=== PATIENT | female | born 2000 | race African-American/Black ===

== ENCOUNTER 2022-01-22 13:23 | Emergency (ER) | payer OTHER ==
[~2022-01-22] VITALS: Ht 165.1 cm; Wt 77.2 kg
[2022-01-22 13:33] VITALS: BP 132/71
[2022-01-22 14:00] VITALS: BP 104/79
[2022-01-22 14:30] VITALS: BP 97/72
[2022-01-22] MEDS ORDERED: XYZAL ALLERGY 245 MG PO (14:46)
[2022-01-22] MEDS ORDERED: FLONASE AL50 MCG/AC1 NS (14:46)
[2022-01-22 15:00] VITALS: BP 114/74
[2022-01-22 15:16] VITALS: BP 114/74
== END 2022-01-22 15:24 | disposition home or self-care (01) ==
LOC: ED 13:23
DX: J06.9 Acute upper respiratory infection, unspecified (principal); Z20.822 Contact with and (suspected) exposure to COVID-19

== ENCOUNTER 2022-09-14 09:27 | Emergency (ER) | payer OTHER ==
[~2022-09-14] VITALS: Ht 165.1 cm; Wt 85.4 kg
[~2022-09-14 09:27] MED LIST: FLONASE AL50 MCG/AC1 NS; XYZAL ALLERGY 245 MG PO
[2022-09-14 09:50] VITALS: BP 107/61
[2022-09-14 10:00] VITALS: BP 106/66
[2022-09-14 10:15] VITALS: BP 114/86
[2022-09-14 10:31] VITALS: BP 110/66
[2022-09-14 10:45] VITALS: BP 113/77
[2022-09-14 11:00] VITALS: BP 113/77
== END 2022-09-14 11:04 | disposition home or self-care (01) ==
LOC: ED 09:27
DX: S90.122A Contusion of left lesser toe(s) without damage to nail, initial encounter (principal); W22.09XA Striking against other stationary object, initial encounter

== ENCOUNTER 2022-11-15 10:06 | Emergency (ER) | payer OTHER ==
[~2022-11-15] VITALS: Ht 167.6 cm; Wt 82.0 kg
[2022-11-15 10:28] LABS: BASO% 0.2 % (0-3); EOS% 0.2 % (0-8); IMMATURE GRANULOCYTES 0.6 % (0.0-5.0); LYMPH% 16.8 % (15-41); MEAN CELL VOLUME 83.5 fL CALC (80.0-100.0); MEAN CORPUSCULAR HGB 27.3 pG CALC (26.0-32.0); MEAN CORPUSCULAR HGB CONC 32.7 g/dL CAL (32.0-36.0); MONO% 6.3 % (2-13); NEUT# 3.89 thou/uL (2.00-7.15); NEUT% 75.9 % (42-76); RED BLOOD COUNT 4.98 mill/uL (4.20-5.60); RED CELL DISTRI WIDTH 13.4 % (11.5-15.5)
[2022-11-15 10:35] VITALS: BP 122/80
[2022-11-15 10:42] LABS: HEMATOCRIT 41.6 % (37.0-47.0); HEMOGLOBIN 13.6 g/dl (12.0-16.0)
[2022-11-15 10:46] LABS: ANION GAP 13 (6-22 (CALC)); BILIRUBIN, TOTAL 0.6 mg/dL (0.02-1.3); BUN 9 mg/dL (7-17); BUN/CREATININE RATIO 15 (12-20 (CALC)); CARBON DIOXIDE 23 mmol/l (22-30); CHLORIDE 105 mmol/l (95-108); CREATININE 0.6 mg/dL (0.5-1.0); GFR FOR AFR.AMER. > 60 ML/MIN (>=60 (CALC)); GFR OTHER RACES > 60 ML/MIN (>=60 (CALC)); LIPASE 40 u/l (23-300); POTASSIUM 3.5 mmol/l (3.5-5.1); SGOT/AST 35 u/l (14-36); SODIUM 137 mmol/l (137-146); TOTAL PROTEIN 7.6 g/dL (6.3-8.2)
[2022-11-15 10:48] LABS: ALBUMIN 4.5 g/dL (3.2-5.0); ALKALINE PHOSPHATASE 81 u/l (38-126)
[2022-11-15 11:00] VITALS: BP 103/80
[2022-11-15 12:00] VITALS: BP 102/59
[2022-11-15] MEDS ORDERED: ZOFRAN4 MG/TAB PO (12:44)
[2022-11-15 13:02] VITALS: BP 102/59
== END 2022-11-15 13:30 | disposition home or self-care (01) ==
LOC: ED 10:06
PROVIDERS: Family Medicine
DX: R10.84 Generalized abdominal pain (principal); R11.2 Nausea with vomiting, unspecified

== ENCOUNTER 2023-03-04 09:36 | Emergency (ER) | payer OTHER ==
[~2023-03-04] VITALS: Ht 167.6 cm; Wt 81.6 kg
[2023-03-04] VITALS (7 sets, daily range): BP systolic 104–133; BP diastolic 61–75
[~2023-03-04 09:36] MED LIST changes: +ZOFRAN4 MG/TAB PO
[2023-03-04] MEDS ORDERED: AMOX/K CLAV875 M1 PO (10:43)
[2023-03-04] MEDS ORDERED: DECADRON4 MG PO (10:43)
== END 2023-03-04 11:31 | disposition home or self-care (01) ==
LOC: ED 09:36
DX: J02.0 Streptococcal pharyngitis (principal); Z20.822 Contact with and (suspected) exposure to COVID-19

== ENCOUNTER 2024-09-29 13:54 | Emergency (ER) | payer OTHER ==
[~2024-09-29] VITALS: Ht 167.6 cm; Wt 72.0 kg
[~2024-09-29 13:54] MED LIST changes: +AMOX/K CLAV875 M1 PO; +DECADRON4 MG PO
[2024-09-29 14:07] VITALS: BP 135/74
[2024-09-29] MEDS ORDERED: NAPROXEN500 MG PO (14:14)
[2024-09-29 14:15] VITALS: BP 134/85
[2024-09-29 14:30] VITALS: BP 137/73
== END 2024-09-29 14:39 | disposition home or self-care (01) ==
LOC: ED 13:54
DX: K08.89 Other specified disorders of teeth and supporting structures (principal)